=== PATIENT | female | born 1960 | race Caucasian/White ===

== ENCOUNTER 2023-04-25 08:25 | Outpatient (CLI) | payer BC | END 2023-04-25 08:26 | disposition home or self-care (01) | LOC: CSHULT 08:25 | PROVIDERS: ATTEND Nurse Practitioner Family | DX: R92.2 Inconclusive mammogram (principal); N64.89 Other specified disorders of breast | CPT/HCPCS: G0279 ==

== ENCOUNTER 2023-12-19 08:23 | Outpatient (CLI) | payer OTHER | END 2023-12-19 08:24 | disposition home or self-care (01) | LOC: CSHMAMMO 08:23 | PROVIDERS: ATTEND Nurse Practitioner Family | DX: R92.8 Other abnormal and inconclusive findings on diagnostic imaging of breast (principal); N63.11 Unspecified lump in the right breast, upper outer quadrant | CPT/HCPCS: G0279 ==

== ENCOUNTER 2024-01-09 12:25 | Outpatient (CLI) | payer OTHER | END 2024-01-09 12:26 | disposition home or self-care (01) | LOC: CSHULT 12:25 | PROVIDERS: ATTEND Nurse Practitioner Family | DX: N63.12 Unspecified lump in the right breast, upper inner quadrant (principal) | CPT/HCPCS: 19083; 88305 ==

== ENCOUNTER 2024-01-19 16:17 | Outpatient (CLI) | payer OTHER | END 2024-01-19 16:18 | disposition home or self-care (01) | LOC: CSHRAD 16:17 | PROVIDERS: ATTEND Psychiatry & Neurology Neurology | DX: M54.2 Cervicalgia (principal); M47.812 Spondylosis without myelopathy or radiculopathy, cervical region | CPT/HCPCS: 72050 ==

== ENCOUNTER 2024-07-29 08:02 | Outpatient (CLI) | payer OTHER | END 2024-07-29 08:03 | disposition home or self-care (01) | LOC: CSHMRI 08:02 | PROVIDERS: ATTEND Nurse Practitioner Family | DX: M47.816 Spondylosis without myelopathy or radiculopathy, lumbar region (principal); M48.061 Spinal stenosis, lumbar region without neurogenic claudication; M48.07 Spinal stenosis, lumbosacral region; M47.817 Spondylosis without myelopathy or radiculopathy, lumbosacral region | CPT/HCPCS: 72148 ==

== ENCOUNTER 2025-08-11 14:30 | Outpatient (CLI) | payer BC ==
[~2025-08-11 14:30] MED LIST: Iopamidol 300 61% 100 ML VIAL FS ONE
[2025-08-11 15:29] LABS: Estimated GFR - POC 56.0
== END 2025-08-11 14:31 | disposition home or self-care (01) ==
LOC: CSHCT 14:30
PROVIDERS: ATTEND Otolaryngology
DX: R13.10 Dysphagia, unspecified (principal)
CPT/HCPCS: 36415; 70491; 82565